=== PATIENT | female | born 1960 | race Two or more races ===

== ENCOUNTER → 2016-12-13 | Outpatient (CLI) | payer OTHER ==
--- NOTE | 2016-12-13 11:43 | RAD ---
PROCEDURE MR of the right shoulder HISTORY Pain, limited mobility after a fall 20 days ago. TECHNIQUE Routine multiplanar sequences are obtained. COMPARISON None FINDINGS The acromioclavicular joint is intact. The rotator cuff demonstrates diffusely increased signal with some thickening compatible with tendinosis. There is ill definition of the undersurface of the anterior supraspinatus tendon, and of the bursal surface of the supraspinatus tendon, compatible with some degeneration or superficial tearing. No measurable fluid gap is identified, however and there is no evidence of through and through or retracted rupture. No significant subdeltoid bursal fluid. No advanced rotator cuff muscle atrophy. No significant glenohumeral joint effusion. No clear-cut labral tear. There is mild signal within the superior labrum compatible with degeneration. The biceps tendon demonstrates mild proximal tendinosis, centered at the bicipital groove entrance but no tear or dislocation. No bone lesion. No acute fracture. No acute soft tissue injury. IMPRESSION 1. Rotator cuff tendinosis. Surface degeneration or superficial tearing of the supraspinatus tendon, but no measurable defect or through and through rupture of the rotator cuff. 2. Mild degenerative signal of the superior labrum without evidence of a tear. 3. Mild proximal biceps tendinosis. Electronically signed by: Vic Zamora MD (Dec 13, 2016 11:42:18)
== END | disposition home or self-care (01) ==
LOC: MRI 09:41
DX: S46.111A Strain of muscle, fascia and tendon of long head of biceps, right arm, initial encounter (principal); W19.XXXA Unspecified fall, initial encounter; Y93.89 Activity, other specified; Y92.89 Other specified places as the place of occurrence of the external cause; Y99.8 Other external cause status
CPT/HCPCS: 73221

== ENCOUNTER → 2021-03-07 | Outpatient (CLI) | payer OTHER ==
[~2021-03-07] MED LIST: ACET325T9 PO; ASPI-630 PO; CYCL10TA19 PO; ESTR42.53 VG; FEXO1TAB27 PO; HYDR-2761 PO; LOSA-73 PO; MOME13HF IH; MONT10TA49 PO; OMEP40CA7 PO; PRAV40TA2 PO; TRAZ-118 PO; VENTOLIN HFA18 GM INH
--- NOTE | 2021-03-07 17:38 | KCIC ---
Exam Date: 03/07/2021 9:45 AM MRI LEFT LOWER EXTREMITY JOINT WITHOUT Indication: Reason: LEFT KNEE PAIN / Spl. Instructions: / History: Lt anterior knee pain since a run alanna injury in Oct. Swelling.. TECHNIQUE: Routine multiplanar MR imaging of the knee was performed without contrast. COMPARISON: Radiographs from November 08, 2020 FINDINGS: There is a posterior horn root tear of the medial meniscus. The lateral meniscus is intact and within normal limits for age. The anterior cruciate ligament, posterior cruciate ligament, medial collateral ligament, and lateral collateral ligament complex are intact. Patellofemoral extensor mechanism and popliteus tendon are w ithin normal limits. There is focal full-thickness chondral fissuring along the lateral patella facet with mild subchondra l degenerative marrow signal. Cartilage in the patellofemoral compartment is otherwise intact. Ther e is mild diffuse chondral thinning in the medial and lateral compartments without focal thickness ch ondral loss. Bone marrow demonstrates benign signal on all sequences. No acute fracture is seen. Physiologic joint fluid is present. There is no popliteal cyst. IMPRESSION: Posterior horn root tear of the medial meniscus. Intact lateral meniscus. Mild degenerative changes noted with full-thickness chondral fissuring in the patellofemoral compartm ent. Electronically signed by: Pineda Irizarry MD (03/07/2021 5:36 PM) [id number]
== END ==
LOC: KCIC MRI 09:34
PROVIDERS: ATTEND Physician Assistant
DX: S83.242A Other tear of medial meniscus, current injury, left knee, initial encounter (principal); M17.12 Unilateral primary osteoarthritis, left knee; M25.862 Other specified joint disorders, left knee; X58.XXXA Exposure to other specified factors, initial encounter; Y93.89 Activity, other specified; Y92.89 Other specified places as the place of occurrence of the external cause; Y99.8 Other external cause status
CPT/HCPCS: 73721

== ENCOUNTER → 2021-07-12 | Outpatient (CLI) | payer OTHER ==
--- NOTE | 2021-07-12 15:43 | RAD ---
Exam Date: 07/12/2021 10:49 AM MRI RIGHT LOWER EXTREMITY JOINT WITHOUT Indication: Reason: ACUTE MEDIAL MENISCUS TEAR OF RIGHT KNEE / Spl. Instructions: / History: . TECHNIQUE: Routine multiplanar MR imaging of the knee was performed without contrast. FINDINGS: There is a medial meniscus posterior horn root tear. The lateral meniscus is intact and within normal limits for age. The anterior cruciate ligament, posterior cruciate ligament, medial collateral ligament, and lateral collateral ligament complex are intact. Patellofemoral extensor mechanism and popliteus tendon are w ithin normal limits. Tricompartment partial thickness chondral defects are noted, most prominent in the medial compartment . No full thickness chondral defects are identified. Bone marrow demonstrates benign signal on all sequences. No acute fracture is seen. Physiologic joint fluid is present. There is no popliteal cyst. IMPRESSION: Medial meniscus posterior horn root tear noted. Tricompartment partial thickness chondral loss. No large full-thickness chondral defects identified. Electronically signed by: Pineda Irizarry MD (07/12/2021 3:40 PM) [id number]
== END ==
LOC: MRI 10:43
PROVIDERS: ATTEND Physician Assistant
DX: S83.241A Other tear of medial meniscus, current injury, right knee, initial encounter (principal); S76.311A Strain of muscle, fascia and tendon of the posterior muscle group at thigh level, right thigh, initial encounter; X58.XXXA Exposure to other specified factors, initial encounter; Y93.89 Activity, other specified; Y92.89 Other specified places as the place of occurrence of the external cause; Y99.8 Other external cause status
CPT/HCPCS: 73721

== ENCOUNTER 2021-08-07 10:18 | Day surgery (SDC) | payer OTHER ==
[~2021-08-07] VITALS: Ht 160 cm; Wt 72.7 kg
[~2021-08-07 10:18] MED LIST changes: +BUPIVACAINE-EPI 0.25%-1:200000 MPF 30 ML VIAL. ONE; -HYDR-2761 PO; +HYDROmorphone 2 MG/ML VIAL IVP PRN; +IV RINGERS,LACTATED 1000ML 1,000 ML IV SCH; +MORPHINE SULFATE 2 MG/ML INJ. IVP PRN; +PROCHLORPERAZINE 10 MG/2 ML VIAL. IVP PRN; +fentaNYL PF VIAL 100 MCG/2 ML VIAL IVP PRN
[2021-08-07] MEDS ORDERED: PROPOFOL 10 MG/ML (20ML) VIAL. IV ONE ×2 (11:49→12:25)
[2021-08-07] MEDS ORDERED: fentaNYL PF VIAL 100 MCG/2 ML VIAL ONE ×2 (11:49→13:02)
[2021-08-07] MEDS ORDERED: ONDANSETRON PF 4 MG/2 ML VIAL. ONE (11:49)
[2021-08-07] MEDS ORDERED: DEXAMETHASONE SOD PHOS 4 MG/ML VIAL ONE (11:49)
[2021-08-07] MEDS ORDERED: HYDR-2761 PO (12:17)
--- NOTE | 2021-08-07 12:19 | DISCH ---
DISCHARGE INSTRUCTIONS Condition on Discharge Condition on Discharge: Stable Activity After Discharge Activity Instructions for Disc: Activity as tolerated, Avoid exertion Driving Instructions after Dis: Do not drive today Weight Bearing Status after Di: Full weight bearing Wound Incision Care Wound/Incision Care: Ice to area for comfort, Keep wound elevated Other wound/incision instructi: May change dressings postoperative day #3 Follow-Up Follow up with: 10 to 14 days SUMEET MUELLER Jr. DO Aug 07, 2021 12:19
--- NOTE | 2021-08-07 12:49 | PDOC4 ---
OPERATIVE NOTE Date: Date: Aug 07, 2021 Pre-Op Diagnosis: Medial meniscal tear with medial compartment degenerative joint disease right knee Post-Op Diagnosis: Same Procedure Performed: Right knee arthroscopy with chondroplasty medial femoral condyle minimal partial medial meniscectomy root medial meniscus Surgeon: Cinthya Anesthesia Type: General Blood Loss: 20 cc Specimans Obtained: None Findings: See dictation Complications: None SUMEET MUELLER Jr. DO Aug 07, 2021 12:49
[2021-08-07] MEDS: fentaNYL PF VIAL 100 MCG/2 ML VIAL IVP PRN ×2 (13:05→13:21)
--- NOTE | 2021-08-07 13:06 | OP ---
DATE OF SURGERY: 08/07/2021 PREOPERATIVE DIAGNOSIS: Degenerative joint disease with medial meniscal tear, right knee. POSTOPERATIVE DIAGNOSIS: Degenerative joint disease with medial meniscal tear, right knee. PROCEDURE: Right knee arthroscopy with minimal partial medial meniscectomy, joint debridement, medial femoral condyle, right knee. DESCRIPTION OF PROCEDURE: The patient was taken to the operative suite, given a general anesthetic. Right lower extremity was placed in a knee jacobs, prepped and draped in a sterile fashion. Inferomedial and inferolateral portals were established. The knee was insufflated with saline. Visualization of the patellofemoral joint noted this to be intact. Significant amount of synovitis was noted at this point. Therefore, synovectomy was completed to better visualize this, but there were no significant degenerative changes noted on the patella or femoral sulcus. Scope was then taken into the medial compartment, there was noted to be some grade 2 and a large area of grade 3, which is very deep and unstable on the chondral surface. There were also grade 2 and 3 changes on the tibial side of the joint, but those were stable; therefore, debridement was undertaken of the medial femoral condyle back down to stable tissue. No bone was exposed at this point. This was very deep grade 3, however. Along the area of the root, there was approximately 25% tear of the meniscus, this was debrided at this point back to stable tissue. No full tear was noted and probing revealed this to be very stable within the joint. No other tears were noted about the centralized or peripheral portion of the meniscus with probing and range of motion. The scope was then taken into the intercondylar region where the ACL and the PCL were visualized and noted to be intact. They were also stable with probing. Lateral compartment was also intact without any lesions, tears or abnormalities at all. There were no degenerative changes to this compartment at all. Therefore, this was reinspected. No new problems were noted. All instruments were then removed after this was thoroughly irrigated and suctioned dry. Wounds were reapproximated. Local was placed within the portal sites. A sterile dressing was applied. The patient was then taken from the operative bed to the postoperative bed, taken to the PACU in stable condition. MAGGIE DR: Wicho TID: [id number]
[2021-08-07] MEDS ORDERED: MORPHINE SULFATE 2 MG/ML INJ. ONE (13:24)
[2021-08-07] MEDS ORDERED: HYDROcodone/APAP 5/325MG 1 TAB TABLET PO ONE (13:30)
[2021-08-07 13:45] VITALS: BP 134/67
== END 2021-08-07 14:20 | disposition home or self-care (01) ==
LOC: SURG 10:18
PROVIDERS: ATTEND Orthopaedic Surgery
DX: S83.241A Other tear of medial meniscus, current injury, right knee, initial encounter (principal); M17.11 Unilateral primary osteoarthritis, right knee; M65.88 Other synovitis and tenosynovitis, other site; I10 Essential (primary) hypertension; E78.00 Pure hypercholesterolemia, unspecified; K21.9 Gastro-esophageal reflux disease without esophagitis; J45.909 Unspecified asthma, uncomplicated; Z79.82 Long term (current) use of aspirin; Z79.899 Other long term (current) drug therapy; Z90.710 Acquired absence of both cervix and uterus; Z98.890 Other specified postprocedural states
CPT/HCPCS: 29881; A4930; J0690; J1100; J2270; J2405; J2704; J3010; J3490